=== PATIENT | male | born 1990 | race Caucasian/White ===

== ENCOUNTER 2019-02-18 20:27 | Emergency (ER) | payer BC ==
[~2019-02-18] VITALS: Ht 180.3 cm; Wt 81.6 kg
--- NOTE | 2019-02-18 20:44 | NUR ---
"PT IRENE C/O ABCESS DRAINED X 1 WEEK, DID NOT FINISH ANTIBIOTIC TREATMENT DISCHARGE AND REDNESS" PT AAOX4, -SOB, NAD NOTED, VSS, PENDING MD NELSON
[2019-02-18] MEDS ORDERED: LORAZEPAM INJ 2 MG/ML VIAL IV ONE (21:30)
[2019-02-18] MEDS ORDERED: IV NS 0.9% 1,000 ML BAG IV ONE (21:30)
[2019-02-18] MEDS ORDERED: PIPERACILLIN /TAZOBACTAM 3.375 G in IV D5W 50 ML IV ONE (21:30)
[2019-02-18] MEDS ORDERED: PIPERACILLIN /TAZOBACTAM 3.375 G VIAL IV ONE (21:38)
[2019-02-18 21:40] LABS: BASOPHILS # (AUTO) 0.1 /CMM (0.0-0.2); BASOPHILS % (AUTO) 0.7 % (0.0-2.0); EOSINOPHILS % (AUTO) 0.3 % (0.0-6.0); HEMATOCRIT 47 % (39-51); HEMOGLOBIN 15.8 g/dL (13.5-17.5); LYMPHOCYTES # (AUTO) 3.1 /CMM (0.8-4.8); LYMPHOCYTES % (AUTO) 21.5 % (20.0-44.0); MEAN CORPUSCULAR HGB CONC 33 g/dl (31.0-36.0); MEAN CORPUSCULAR VOLUME 88 fL (80-96); MONOCYTES % (AUTO) 6.7 % (2.0-12.0); NEUTROPHILS # (AUTO) 10.1 /CMM (1.8-8.9); NEUTROPHILS % (AUTO) 70.8 % (43.0-81.0); PLATELET COUNT (AUTO) 278 /CMM (150-450); RED BLOOD CELL COUNT(AUTO) 5.39 MIL/uL (4.5-6.0); WHITE BLOOD COUNT (AUTO) 14.3 K/uL (4.3-11.0)
[2019-02-18 21:56] LABS: CALCIUM, SERUM 9.4 mg/dL (8.5-10.1); CREATININE 1.1 mg/dL (0.6-1.3); POTASSIUM 3.8 mmol/L (3.5-5.1)
[2019-02-18 21:58] LABS: ALBUMIN 3.8 g/dL (3.4-5.0); BILIRUBIN,DIRECT 0.1 mg/dL (0.0-0.2); BILIRUBIN,TOTAL 0.4 mg/dL (0.2-1.0); TOTAL PROTEIN, SERUM 7.7 g/dL (6.4-8.2)
[2019-02-18] MEDS ORDERED: IOHEXOL-300 100 ML VIAL IV ONE (22:05)
[2019-02-18] MEDS ORDERED: CT SWABBABLE VALVE TRANS SET 1 EA INFUS.SET MC ONE (22:05)
[2019-02-18] MEDS ORDERED: IV NS 0.9% 250 ML IV ONE (22:05)
--- NOTE | 2019-02-18 22:15 | NUR ---
PT TAKEN TO CT
--- NOTE | 2019-02-18 23:13 | NUR ---
CALLED [facility] FOR REPORT
--- NOTE | 2019-02-18 23:47 | NUR ---
Patient discharged to home in stable condition. Written and verbal after care instructions given. Patient verbalizes understanding of instruction. IV removed. Catheter intact and site benign. Pressure and 4x4 applied to site. No bleeding noted.
[2019-02-18 23:50] VITALS: BP 158/60
== END 2019-02-19 00:02 | disposition home or self-care (01) ==
LOC: ER 20:32
DX: L05.01 Pilonidal cyst with abscess (principal); F20.9 Schizophrenia, unspecified; F41.9 Anxiety disorder, unspecified
CPT/HCPCS: 36415; 74177; 80048; 80076; 85025; 87040; 96365; 99284; A6253; A6407; J2543; J7030; J7050; J7060; Q9967

== ENCOUNTER 2019-02-21 13:58 | Emergency (ER) | payer BC ==
[~2019-02-21] VITALS: Ht 180.3 cm; Wt 86.2 kg
[2019-02-21 14:59] VITALS: BP 129/95
--- NOTE | 2019-02-21 16:14 | NUR ---
WOUND CARE PROVIDED. D/C IN STABLE CONDITION.
== END 2019-02-21 16:15 | disposition home or self-care (01) ==
LOC: ER 13:58
DX: L05.01 Pilonidal cyst with abscess (principal); F20.9 Schizophrenia, unspecified; R00.0 Tachycardia, unspecified
CPT/HCPCS: 99283; A6407